=== PATIENT | female | born 1935 | race African-American/Black ===

== ENCOUNTER 2017-09-21 10:23 | Emergency (ER) | payer MEDICARE, MEDICAID ==
[~2017-09-21] VITALS: Ht 165.1 cm; Wt 100.0 kg
[2017-09-21 11:17] LABS: HEMATOCRIT 39.9 % (37.0-47.0); HEMOGLOBIN 12.3 g/dl (12.0-16.0); IMMATURE GRANULOCYTES 0.2 % (0.0-1.0); MEAN CELL VOLUME 75.9 fL CALC (80.0-100.0); MEAN CORPUSCULAR HGB 23.4 pG CALC (26.0-32.0); MEAN CORPUSCULAR HGB CONC 30.8 g/L CALC (32.0-36.0); NEUT# 3.04 thou/uL (2.00-7.15); RED BLOOD COUNT 5.26 mill/uL (4.20-5.60); RED CELL DISTRI WIDTH 15.7 % (11.5-15.5)
[2017-09-21 11:26] LABS: ALBUMIN 3.6 g/dL (3.2-5.0); BILIRUBIN, TOTAL 0.2 mg/dL (0.0-1.4); CREATININE 1.1 mg/dL (0.5-1.0); POTASSIUM 4.2 mmol/l (3.5-5.1); TOTAL PROTEIN 6.6 g/dL (6.3-8.2)
[2017-09-21 12:05] LABS: URINE BILIRUBIN - DIPSTICK NEGATIVE (NEGATIVE); URINE BLOOD DIPSTICK LARGE (NEGATIVE); URINE COLOR YELLOW; URINE GLUCOSE - DIPSTICK NEGATIVE (NEGATIVE); URINE KETONE NEGATIVE (NEGATIVE); URINE LEUK ESTERASE NEGATIVE (NEGATIVE); URINE NITRITE - DIPSTICK NEGATIVE (Negative); URINE PROTEIN - DIPSTICK 30 mg/dL (NEG-TRACE); URINE SPECIFIC GRAVITY >=1.030; URINE UROBILINOGEN - DIPSTICK 0.2 E.U./dL (0.2)
[2017-09-21] MEDS ORDERED: XARELTO20 MG PO (12:34)
[2017-09-21] MEDS ORDERED: SIMVASTATIN20 MG PO (12:35)
[2017-09-21] MEDS ORDERED: LATANOPROST0.005 % OP (12:35)
[2017-09-21] MEDS ORDERED: COSOPT1 ML OP (12:35)
[2017-09-21 12:47] LABS: URINE CLARITY CLEAR
[2017-09-21 12:48] LABS: URINE SQUAMOUS EPITHELIAL CELL FEW EPI/hpf (0-FEW); URINE WBC 0-2 WBC/hpf (0-5)
[2017-09-21 13:33] VITALS: BP 133/78
== END 2017-09-21 13:50 | disposition home or self-care (01) ==
LOC: ED 10:23
PROVIDERS: Emergency Medicine
DX: R53.1 Weakness (principal); I48.91 Unspecified atrial fibrillation; R55 Syncope and collapse; I10 Essential (primary) hypertension; Z86.73 Personal history of transient ischemic attack (TIA), and cerebral infarction without residual deficits; Y92.89 Other specified places as the place of occurrence of the external cause